=== PATIENT | male | born 1930 | race Caucasian/White ===

== ENCOUNTER 2016-12-11 15:15 | Observation (INO) ==
--- NOTE | 2016-12-11 16:28 | Pulmonology History & Physical ---
Assessment and Plan (1) Pneumothorax on left Status: Acute Assessment and plan: He apparently has a spontaneous left pneumothorax. Chest x-ray shows about 50% lapse of left long. 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 Hopefully this will take care of it. May require pleurodesis or video-assisted thoracic surgery in time. This was discussed with the patient and his family. His and daughter were in the room. Current Visit: Yes (2) COPD, severe Status: Acute Assessment and plan: We obtain PFTs today after I had seen him before the chest x-ray was done and his FEV1 is 32% of predicted indicating severe COPD. He does have some volume loss as well which likely is restricted from the pneumothorax. I have ordered bronchodilators. We will give him a brief course of Solu-Medrol and antibiotics. Low flow oxygen. Obtain ABGs Current Visit: Yes (3) History of lung cancer Status: Acute Assessment and plan: He had a pulmonary nodule removed about 6 years ago at [place] by Dr. Sanchez. It was cancerous. He followed up with Dr. Bo and there is been no evidence of recurrence. Current Visit: Yes 12 point system: reviewed and no additional remarkable complaints except as stated - Constitutional Constitutional: Present: fatigue, weight loss (About 4 pound) - EENT Eyes: Present: requires corrective lense Nose, mouth and throat: Present: hoarseness - Cardiovascular Cardiovascular: Present: dyspnea, dyspnea on exertion, orthopnea, PND - Respiratory Respiratory: Present: dyspnea, dyspnea on exertion - Gastrointestinal Gastrointestinal: Present: nausea - Musculoskeletal Musculoskeletal: Present: other (Gout and left foot in the distant past) - Neurological Neurological: Present: numbness (In all arms last few day) - Psychiatric Psychiatric: Present: depression - Hematologic/Lymphatic Hematologic/Lymphatic: Present: easy bruising History of Present Illness Chief complaint: Shortness of breath History of present illness: Mr. Mcneil is a 86 year old male who has COPD. He is chronically short of breath and has oxygen at home that he uses pretty much as needed. He woke up about 3 AM Friday morning which would be 4 days ago, and had a sudden onset of dyspnea. He has been short of breath since then. His family says he has lost a little weight. Patient has had a previous right pneumothorax and when it was repaired surgically by Dr. Sanchez at [place] a small lesion was removed that was cancerous. Dr. Daryl Gottlieb has followed him and there is been no evidence of recurrence. He came to the clinic today for a visit and we found that he had a 50% left pneumothorax. He was admitted. Dr. Scott is putting a left chest tube in him in the emergency room at present. Patient is a former smoker for 60 years but quit about 6 years ago. He has not had recent sputum production fever or hemoptysis. Home Medications Medication Instructions Recorded Confirmed Type Aclidinium [place] [Tudorza 400 mcg INH BID 12/11/16 12/11/16 History Pressair] Aspirin EC Tab 81 mg PO DAILY 12/11/16 12/11/16 History Docusate Sodium 100 mg PO DAILY PRN 12/11/16 12/11/16 History Levothyroxine Tab [Synthroid Tab] 25 mcg PO DAILY 12/11/16 12/11/16 History Mometasone/Formoterol 200-5 2 puff INH BID 12/11/16 12/11/16 History [Dulera 200-5] Omeprazole 20 mg PO DAILY 12/11/16 12/11/16 History Allergies Allergy/AdvReac Type Severity Reaction Status Date / Time No Known Allergies Allergy Unverified 12/11/16 15:44 Medical,Surgical,& Family Hx - Medical History Endocrine: History of: Thyroid Disorder (He has hypothyroid) Rheumatology: History of;: Gout Respiratory: History of: COPD, Lung Cancer (Had a pulmonary nodule removed from his right long about 6 years ago) Gastrointestinal: History of: GERD - Surgical History HEENT Surgeries: Surgical HX of: Eye Surgery (Cataract surgery), Tonsilectomy & Adenoidectomy Abdominal Surgeries: Surgical HX of: Appendectomy Additional Surgical History: He had a right thoracoscopy with resection of a lung cancer about 6 years ago at [place] - Family History Family History: Reports;: Family Diabetes (Mother was diabetic), Family Heart Disease (Brother has heart disease), Additional Family History (Father of lung disease) - Social History Smoking Status: Former smoker (Smoked for 60 years quit about 6 years ago) Have you smoked in the last 12 months: No Time spent discussing smoking cessation with patient: 3 to 10 minutes Frequency of Alcohol Use: None Type of Drug Use: None Marital Status: Lives With:: Spouse Functional capacity: independent ambulation [facility] H&P - Constitutional Vitals: Period Temp Pulse Resp BP Sys/Cesar Pulse Ox Last 24 Hr 97.7 F-97.7 F 106-116 20-25 139-171/83-97 90-96 Exam: Patient's alert oriented sitting up in a chair. O2 sat 90% on room air. Pupils react to light. Throat is clear. Neck supple no bruits. Chest reveals decreased breath sounds on the left compared to the right. There is no crepitance. Prolonged expiratory phase. Heart rapid rate normal rhythm. Abdomen soft nontender no masses liver spleen kidney not palpably enlarged. extremities no clubbing cyanosis edema. Calves nontender. He is tympanitic over the left chest.
[2016-12-11] MEDS ORDERED: MIDAZOLAM 2 MG/2 ML VIAL ONE (16:47)
[2016-12-11] MEDS ORDERED: fentaNYL 100 MCG/2 ML VIAL ONE (16:47)
[2016-12-11] MEDS ORDERED: LIDOCAINE 1%/EPI INJ 20 ML VIAL ONE (16:58)
[2016-12-11] MEDS ORDERED: fentaNYL 100 MCG/2 ML VIAL IV STA (17:00)
[2016-12-11 17:13] LABS: Basophils # 0.1 10*3/uL (0.0-0.2); Eosinophils # 0.2 10*3/uL (0.0-0.87); Eosinophils % 1.9 % (0.00-10.9); Hematocrit 49.9 VOL% (42.0-52.0); Hemoglobin 16.5 GM/DL (14.0-18.0); Immature Granulocytes % 1.1 %; Immature Granulocytes Absolute 0.09 #; Lymphocytes # 2.3 10*3/uL (1.4-4.0); Mean Corpuscular HGB Conc 33.1 GM/DL (32-36); Mean Corpuscular Hemoglobin 32 PG (27-34); Mean Platelet Volume 10.9 FL (9.6-12.0); Monocytes # 0.6 10*3/uL (0.11-0.8); Monocytes % 7.1 % (1.7-12.7); Neutrophils # 4.9 10*3/uL (1.4-7.4); Neutrophils % 60.9 % (38.7-73.9); Platelet Count 163 T/CUMM (130-400); Red Cell Distribution Width 11.9 % (9.3-17.3); White Blood Count 8.1 T/CUMM (4-12)
--- NOTE | 2016-12-11 17:26 | Emergency Department Note ---
IScott Kasabria, am scribing for, and in the presence of, Aaron Curtis MD 17:24. Kirsetn Khalil Charles R, MD, personally performed the services described in this documentation, ascribed by Erika Chavez in my presence, and it is both accurate and complete [id number] . Arrival - Arrival Chief Complaint: Shortness of Breath Stated Complaint: shortness of breath ED Nursing Triage Note: Patient arrived via w/c from [facility]- Dr Lynch' office. Patient states he became short of breath on Friday. Patient reports going to clinic today and was told that he has a collapsed lung to left side. Dr Chowdhury to come to er to place chest tube. PMH: copd Mode of Arrival: Wheelchair Limitations: No Limitations Source: Patient Time Seen by Provider: 12/11/16 16:37 - History of Present Illness HPI Narrative: This is a 86 y/o male presenting to the ED from [facility] per Dr. Lynch' office for shortness of breath that onset Friday. Pt states he went to the clinic today and was told he had a pneumothorax to the left lung. Dr. Josiah Estrada is to come to the ED for chest tube placement. He denies fever, chills, nausea, vomiting, diarrhea, abdominal pain, back pain, vision change. Pt has a PMHx of COPD, pulmonary nodule to the right lung that removed six years ago, and GERD. His family hx is consistent with heart disease and diabetes. Consistency: constant Severity: moderate Allergies/Adverse Reactions: Allergies Allergy/AdvReac Type Severity Reaction Status Date / Time No Known Allergies Allergy Unverified 12/11/16 15:44 Home Medications: Home Medications Medication Instructions Recorded Confirmed Type Aclidinium [place] [Tudorza 400 mcg INH BID 12/11/16 12/11/16 History Pressair] Aspirin EC Tab 81 mg PO DAILY 12/11/16 12/11/16 History Docusate Sodium 100 mg PO DAILY PRN 12/11/16 12/11/16 History Levothyroxine Tab [Synthroid Tab] 25 mcg PO DAILY 12/11/16 12/11/16 History Mometasone/Formoterol 200-5 2 puff INH BID 12/11/16 12/11/16 History [Dulera 200-5] Omeprazole 20 mg PO DAILY 12/11/16 12/11/16 History Review of System - Review of System 12 point system: reviewed and no additional remarkable complaints except as stated - Review of System Constitutional: Absent: chills, fever, weakness Eyes: Absent: vision change Head/Ears/Nose/Throat: Absent: earache, nasal drainage, sore throat Respiratory: Present: other (possible left collapsed lung ). Absent: cough, wheezing Cardiovascular: Present: dyspnea on exertion. Absent: chest pain, palpitations Gastrointestinal: Absent: nausea Genitourinary male: Absent: dysuria Musculoskeletal: Absent: arm pain, back pain, leg pain, neck pain Skin: Absent: rash Neurological: Absent: headache, weakness, confusion, vertigo Psychiatric: Absent: anxiety Endocrine: Absent: fatigue Hematological/Lymphatic: Absent: easy bleeding Allergic/Immunologic: Absent: facial swelling Medical,Surgical,& Family Hx - Medical History Endocrine: History of: Thyroid Disorder (He has hypothyroid) Rheumatology: History of;: Gout Respiratory: History of: COPD, Lung Cancer (Had a pulmonary nodule removed from his right lung about 6 years ago) Gastrointestinal: History of: GERD - Surgical History HEENT Surgeries: Surgical HX of: Eye Surgery (Cataract surgery), Tonsilectomy & Adenoidectomy Abdominal Surgeries: Surgical HX of: Appendectomy - Family History Family History: Reports;: Family Diabetes (Mother was diabetic), Family Heart Disease (Brother has heart disease), Additional Family History (Father of lung disease) - Social History Smoking Status: Former smoker (Smoked for 60 years quit about 6 years ago) Frequency of Alcohol Use: None Type of Drug Use: None Exam Vital Signs: Vital Signs Temperature 97.7 F 12/11/16 15:36 Pulse Rate 106 H 12/11/16 16:00 Respiratory Rate 20 12/11/16 16:00 Blood Pressure 139/97 12/11/16 16:00 O2 Sat by Pulse Oximetry 96 12/11/16 16:00 - General General appearance: alert, in no apparent distress - Head Head exam: Present: atraumatic, normocephalic, normal inspection - Eye Eye exam: Present: normal appearance, PERRL, EOMI - ENT ENT exam: Present: normal exam, normal oropharynx, mucous membranes moist, TM's normal bilaterally, normal external ear exam - Neck Neck exam: Present: normal inspection, full ROM, trachea midline. Absent: tenderness - Chest Chest inspection: Present: other (chest tube placement to the left chest; 50% pneumothorax ). Absent: normal inspection, symmetric chest wall rise - Respiratory Respiratory exam: Present: rhonchi (right lung chavez ), other (decreased breath sounds on the left ) - Cardiovascular Cardiovascular exam: Present: regular rate, normal rhythm, normal heart sounds - Abdominal Exam Abdominal exam: Present: soft, normal bowel sounds. Absent: distention, tenderness - Extremities Exam Extremities exam: Present: normal inspection, full ROM, normal capillary refill. Absent: tenderness, pedal edema, calf tenderness - Back Exam Back exam: Present: normal inspection, full ROM. Absent: tenderness - Neurological Exam Neurological exam: Present: alert, oriented X3, CN II-XII intact, normal gait, reflexes normal - Psychiatric Psychiatric exam: Present: normal affect, normal mood - Skin Skin exam: Present: warm, dry, intact, normal color. Absent: rash, diaphoresis Course - Reevaluation(s) Reevaluation #1: Patient tolerated procedure well. Patient actually has no air leakage after the pneumothorax was relieved. Patient be admitted for observation repeat chest x-ray in the morning Time: 17:26 - Consultations Consultation #1: Spoke to Dr. Scott who placed a chest tube in the emergency room. He said to admit the patient breathing treatments observation repeat chest x-ray in the morning Time: 17:24 Results - Labs CBC & BMP: 12/11/16 17:05 Lab Results: I have reviewed the patients labs Disposition Clinical Impression: Pneumothorax on left, COPD, severe, Status post left chest tube Case discussed with: patient, patient's family Disposition: Still a Patient Condition: Stable Time of Disposition: 17:25
[2016-12-11 17:38] LABS: Albumin 3.8 G/DL (3.4-5.0); Bilirubin,Total 0.7 MG/DL (0.2-1.0); Magnesium 2.1 MG/DL (1.8-2.4); Osmolality,Calculated 281.4 MOS/KG (273-304); Potassium 4.1 MMOL/L (3.5-5.1); Total Protein 8.1 G/DL (6.4-8.3)
--- NOTE | 2016-12-11 18:07 | XRay Report ---
Exam: XR chest 1V portable Date: 12/11/2016 5:14 PM Indication: Chest tube placement Comparison: 12/11/2016 at 12:59 PM MMA Technical: Portable AP Findings: A left-sided thoracotomy tube has been placed with a pigtail catheter. No obvious pneumothorax in the right chest. Underlying COPD and scarring is present with previous surgical changes right infrahilar region. Oxygen tubing is present. Heart is normal in size. Impression: 1. Small area of residual pneumothorax in the left base with interval placement of the left-sided pigtail catheter with near complete reexpansion of the left chest. 2. Underlying COPD with hyperinflation and scar in the right infrahilar region. PROCEDURE INTERPRETED AT [facility] DEPARTMENT OF RADIOLOGY Final Report Signed by: Dr. Bryce Sanchez
[2016-12-11] MEDS ORDERED: DOCUSATE SODIUM 100 MG CAPSULE PO PRN (18:48)
[2016-12-11] MEDS ORDERED: ONDANSETRON 4 MG/2 ML VIAL IV PRN (18:48)
[2016-12-11] MEDS ORDERED: MORPHINE 2 MG/1 ML SYRINGE IV PRN (18:48)
[2016-12-11] MEDS ORDERED: ACETAMINOPHEN 325 MG TABLET PO PRN (18:48)
[2016-12-11] MEDS ORDERED: SODIUM CHLORIDE 0.9% 1,000 ML IV SCH (18:48)
[2016-12-11] MEDS ORDERED: ALBUTEROL/IPRATROPIUM 3 ML NEB RESP TX PRN (18:48)
[2016-12-11] MEDS: MOMETASONE/FORMOTEROL 200-5 INHALER 8.8 GM INH SCH (21:05)
[2016-12-12] MEDS ORDERED: LEVOTHYROXINE 25 MCG TABLET PO SCH (07:00)
--- NOTE | 2016-12-12 07:17 | XRay Report ---
History short of breath Comparison 12/11/2016 Mediastinal contours grossly unchanged. Patient is rotated. The lungs are diffusely hyperexpanded with a loculated collection of air or bulla at the lateral left base again seen. Pigtail catheter overlies left chest. There is some mildly increasing reticular and patchy density in the left perihilar and suprahilar region suspicious for developing infiltrates although a component shadows and rotation could account for some of this chronic right rib changes again seen Impression: Suspected increasing left suprahilar infiltrates superimposed on chronic changes. Follow-up recommended PROCEDURE INTERPRETED AT [facility] DEPARTMENT OF RADIOLOGY Final Report Signed by: Dr. Maisha Dailey
[2016-12-12] MEDS: IPRATROPIUM 500 MCG/2.5 ML NEB RESP TX SCH ×2 (07:21→11:38)
[2016-12-12 08:01] LABS: Basophils # 0.1 10*3/uL (0.0-0.2); Basophils % 0.9 % (0.0-0.8); Eosinophils # 0.3 10*3/uL (0.0-0.87); Eosinophils % 4.3 % (0.00-10.9); Hematocrit 40.1 VOL% (42.0-52.0); Immature Granulocytes % 0.6 %; Immature Granulocytes Absolute 0.04 #; Lymphocytes # 1.6 10*3/uL (1.4-4.0); Lymphocytes % 24.2 % (21.2-54.2); Mean Corpuscular HGB Conc 33.7 GM/DL (32-36); Mean Corpuscular Hemoglobin 32 PG (27-34); Mean Corpuscular Volume 94.4 FL (87-102); Mean Platelet Volume 10.1 FL (9.6-12.0); Monocytes # 0.5 10*3/uL (0.11-0.8); Monocytes % 7.7 % (1.7-12.7); Neutrophils # 4.1 10*3/uL (1.4-7.4); Neutrophils % 62.3 % (38.7-73.9); Platelet Count 140 T/CUMM (130-400); Red Blood Count 4.25 MC/CUMM (3.8-5.5); White Blood Count 6.5 T/CUMM (4-12)
[2016-12-12 08:11] LABS: Hemoglobin 13.5 GM/DL (14.0-18.0)
--- NOTE | 2016-12-12 08:26 | Pulmonology Progress Note ---
Pulmonary - PN: Subj Interval history: Patient is a 86 year-old white man that has significant COPD with some bullous emphysema. He uses oxygen at home. He came in yesterday because he has been short of breath since Friday. His family thought it was a COPD. He came in was found to have a left pneumothorax. He has had a catheter placed and he says he is feeling better. His lung has reexpanded and he looks comfortable lying in bed. He says is not that short of breath now. Exam (Progress Note) - Constitutional Vitals: Period Temp Pulse Resp BP Sys/Cesar Pulse Ox Last 24 Hr 96.8 F-98.6 F 76-118 16-26 132-168/71-94 94-99 General appearance: no acute distress, under weight, other (He looks comfortable lying in bed.) - Head Head exam: Present: normal inspection, normocephalic - Eye Eye exam: Present: EOMI. Absent: scleral icterus Pupils: Present: TENISHA - ENT ENT exam: Present: normal exam - Neck Neck exam: Present: normal inspection. Absent: lymphadenopathy, thyromegaly - Respiratory Respiratory exam: Present: decreased breath sounds, prolonged expiratory phase, other (He has a left chest catheter in place. There is no air leak at present.) . Absent: wheezes - Cardiovascular Cardiovascular exam: Present: regular rate and rhythm. Absent: gallop, systolic murmur - GI/Abdominal GI/Abdominal exam: Present: normal bowel sounds, soft. Absent: distended, organomegaly, tenderness - Extremities Exam Extremities exam: Absent: calf tenderness, edema - Neurological Exam Neurological exam: Present: alert, oriented X3, CN II-XII intact - Psychiatric Psychiatric exam: Present: normal affect - Skin Skin exam: Present: warm, dry Results - Labs CBC & BMP: 12/12/16 07:44 12/11/16 17:05 - Diagnostic Findings Procedure: Chest x-ray: image reviewed by me, report reviewed by me (Chest x- ray shows COPD and some bullous emphysema. The left lung is expanded.) Assessment and Plan (1) Pneumothorax on left Status: Acute Assessment and plan: Patient came in with a spontaneous left pneumothorax and now he has a catheter on the left. He says he feels much better and his breathing is better. Current Visit: Yes (2) COPD, severe Status: Acute Assessment and plan: Patient has severe COPD but is relatively comfortable at present. He will continue with his bronchodilator therapy. Current Visit: Yes (3) History of lung cancer Status: Acute Assessment and plan: He had a small cancer removed from his right lung and has had no recurrence so far. Current Visit: Yes
[2016-12-12 08:30] LABS: Bilirubin,Total 0.7 MG/DL (0.2-1.0); Calcium 8.1 MG/DL (8.5-10.1); Total Protein 5.8 G/DL (6.4-8.3)
[2016-12-12] MEDS: MOMETASONE/FORMOTEROL 200-5 INHALER 8.8 GM INH SCH (08:39)
[2016-12-12] MEDS ORDERED: ASPIRIN EC 81 MG TABLET PO SCH (09:00)
[2016-12-12] MEDS ORDERED: PANTOPRAZOLE 40 MG TABLET PO SCH ×2 (09:00)
--- NOTE | 2016-12-12 09:00 | Operative Note ---
Date of procedure: 12/12/16 Pre-op diagnosis: Left pneumothorax Post-op diagnosis: same Procedure: Insertion of a left-sided 14 Prydeinig chest tube. The patient was given 25 of fentanyl and the area was infiltrated with lidocaine with epi. I inserted the 14 Prydeinig chest tube in the midclavicular line. Big gush of air was retrieved and the chest tube was secured in position there was no air leak. The follow-up chest x-ray showed complete expansion of the lung. The patient tolerated the procedure well without any problems. Anesthesia: local Surgeon / Physician: Nilson Scott Estimated blood loss: none Results - Labs CBC & BMP: 12/12/16 07:44 12/12/16 07:44 Discharge Plan - Discharge Medications No Action Mometasone/Formoterol 200-5 [Dulera 200-5] 2 puff INH BID Aclidinium [place] [Tudorza Pressair] 400 mcg INH BID Omeprazole 20 mg PO DAILY Docusate Sodium 100 mg PO DAILY PRN PRN Reason: STOOL SOFTENER Aspirin EC Tab 81 mg PO DAILY Levothyroxine Tab [Synthroid Tab] 25 mcg PO DAILY - Follow Up or Referral - Forms/Instructions
[2016-12-12 12:16] VITALS: BP 143/67
--- NOTE | 2016-12-12 13:27 | XRay Report ---
Exam: Chest 2 views Date: December 12, 2016 at 1:06 PM Comparison: Chest one view portable December 12, 2016 at 5:44 AM Reason: Chest tube Findings: A pigtail catheter is again seen in left chest. The heart is not enlarged. The lungs are hyperexpanded, suggesting COPD, and emphysema is present. There is lucency at the peripheral aspect of the left lung base, which is favored to represent a large bleb. The emphysema/bleb formation makes evaluation for a pneumothorax difficult, but no definite pneumothorax is identified. There are again opacities in the left suprahilar region and at the medial aspect of the left lung apex. This may represent pneumonia, neoplasm or scarring. Minimal scattered opacities are present within the remaining lungs and are favored to represent scarring. There may be minimal left pleural fluid. The osseous structures appear stable. Impression: 1. A pigtail catheter is again present at the left chest. Emphysema/bleb formation makes evaluation for a pneumothorax difficult, but no definite pneumothorax is identified. 2. There are persistent opacities in the left suprahilar region and at the medial left lung apex. This could represent pneumonia, neoplasm or scarring. PROCEDURE INTERPRETED AT [facility] DEPARTMENT OF RADIOLOGY Final Report Signed by: Dr. Kathleen Lam
--- NOTE | 2016-12-12 15:22 | Discharge Summary ---
Hospital Course - Hospital Course Hospital Course: The patient came in from Dr. Lynch clinic with large left pneumothorax. He was stable. I placed a 14fr pneumocath whcih resolved the pneumothorax. I placed the patient under observation and he continued to do well. Hospital day 1 I clapmed the tube and the lung remained expanded on CXR. I removed the tube and follow up chest XR looked stable. He was ready for discharge. Specialty Discharge - Follow Up or Referrals Follow up with: Jong Lynch MD [Physician] - Discharge Plan - Discharge Data Disposition: Disch To Home/Self Care Condition at Discharge: Stable Discharge Diet: advance to your usual diet Activity: resume usual activities as tolerated Hygiene: no restrictions Weight Bearing at Discharge: full weight bearing Driving: no restrictions Contact your physician if you experience:: fever over 101, Redness or swelling, Nausea/Vomiting, Bleeding - Discharge Medications Continue Mometasone/Formoterol 200-5 [Dulera 200-5] 2 puff INH BID Aclidinium [place] [Tudorza Pressair] 400 mcg INH BID Omeprazole 20 mg PO DAILY Docusate Sodium 100 mg PO DAILY PRN PRN Reason: STOOL SOFTENER Aspirin EC Tab 81 mg PO DAILY Levothyroxine Tab [Synthroid Tab] 25 mcg PO DAILY - Follow Up or Referral - Forms/Instructions Exam - Constitutional Vitals: Period Temp Pulse Resp BP Sys/Cesar Pulse Ox Last 24 Hr 96.8 F-98.6 F 76-118 16-26 132-168/67-94 94-99 Discharge Results Procedures and tests throughout hospitalization: Pending Orders 12/12/16 14:52 XR chest 2V Stat Labs on day of discharge: Labs from last 24 hours 12/12/16 12/12/16 07:44 07:44 WBC 6.5 RBC 4.25 Hgb 13.5 L D Hct 40.1 L MCV 94.4 MCH 32 MCHC 33.7 RDW 12.0 Plt Count 140 MPV 10.1 Neut % (Auto) 62.3 Lymph % (Auto) 24.2 [place] % (Auto) 7.7 Eos % (Auto) 4.3 Baso % (Auto) 0.9 H Neut # (Auto) 4.1 Lymph # (Auto) 1.6 [place] # (Auto) 0.5 Eos # (Auto) 0.3 Baso # (Auto) 0.1 Immature Gran % 0.6 Nucleated RBC % 0.0 Immature Gran # 0.04 Nucleated RBCs # 0.00 Sodium 143 Potassium 4.0 Chloride 111 H Carbon Dioxide 23 Anion Gap 13.0 BUN 21 H Creatinine 1.40 H GFR Calculation 46 BUN/Creatinine Ratio 15.00 Glucose 86 Calculated Osmolality 286.0 Calcium 8.1 L Magnesium 2.0 Total Bilirubin 0.70 AST 14 ALT 14 L Alkaline Phosphatase 90 Total Protein 5.8 L Albumin 3.0 L Globulin 2.8 Albumin/Globulin Ratio 1.0 L DS: Provider Date of admission: 12/11/16 17:26 Primary care physician: . No PCP Attending physician on admission: Nilson Scott Consults: 12/11/16 18:53 Consult to Dietitian [CONS] Routine Reason for Dietitian: Diet Recommendations 12/11/16 19:04 Consult to Pharmacy [CONS] Routine Reason for Pharmacy Consult: Adjust Meds Renal Funct 12/12/16 14:56 Consult to Case Mgmt/Social Srvs [CONS] Routine Reason for Case Mgmt/Social Srvs: Home Health Consult Comment: Nursing,education,med management Discharging clinician: Nilson Scott Expected date of discharge: 12/12/16
--- NOTE | 2016-12-12 15:24 | XRay Report ---
Exam: XR chest 2V Date: 12/12/2016 2:52 PM Indication: Chest tube removal Comparison: 12/12/2016 at 1:07 PM Technical: PA lateral Findings: Left-sided thoracotomy tube has been removed. Atelectatic change present in the left base persist with low volume left effusion. Underlying COPD with scarring is present. The heart is normal in size and configuration. Pleural diaphragmatic reaction present on the left base is noted. External cardiac leads are present. Bony demineralization is present. Mediastinum appears otherwise intact Impression: 1. Removal left-sided thoracotomy tube with atelectatic change and pleural diaphragmatic reaction and small effusion in the left base without obvious underlying pneumothorax present. 2. COPD with hyperinflation. PROCEDURE INTERPRETED AT [facility] DEPARTMENT OF RADIOLOGY Final Report Signed by: Dr. Bryce Sanchez
== END 2016-12-12 16:20 | disposition home or self-care (01) ==
LOC: EDBD → EDUNIT# → N.EDINP 15:15 → N.ED 15:15 → N.EDINP 18:45 → N.TELES 18:47
PROVIDERS: ADMIT Thoracic Surgery (Cardiothoracic Vascular Surgery); ATTEND Thoracic Surgery (Cardiothoracic Vascular Surgery)